=== PATIENT | male | born 1975 | race Asian ===

== ENCOUNTER 2017-08-06 18:28 | Emergency (ER) | payer BC ==
[~2017-08-06] VITALS: Ht 177.8 cm; Wt 127.0 kg
[2017-08-06 18:35] VITALS: Ht 177.8 cm; Wt 127.0 kg
[2017-08-06 21:18] VITALS: BP 123/74
== END 2017-08-06 21:18 | disposition home or self-care (01) ==
LOC: ED 18:28
DX: R55 Syncope and collapse (principal); I10 Essential (primary) hypertension